=== PATIENT | male | born 1990 | race Caucasian/White ===

== ENCOUNTER 2019-05-16 12:58 | Emergency (ER) | payer BC, SELFPAY ==
[2019-05-16 13:10] VITALS: BP 128/82; PULSE 100; RESP 20; TEMP 37.2; O2SAT 100
--- NOTE | 2019-05-16 13:11 | ED.ABDPAIN ---
HPI - Abdominal Pain General Chief Complaint: Upper Respiratory Infection Stated Complaint: adm pain/nausea/fever Time Seen by Provider: 05/16/19 13:19 Source: patient and RN notes reviewed Mode of arrival: ambulatory Limitations: no limitations History of Present Illness HPI narrative: 28-year-old male presents with concern for diarrhea that started around 5:00 this morning. Reports 5 diarrhea stools since that time. Reports chills, sweats, abdominal cramping, nausea. Denies vomiting. Denies current abdominal pain or nausea. Reports he took Pepto-Bismol this morning. MD elicited complaint: other (Diarrhea) Related Data Allergies Allergy/AdvReac Type Severity Reaction Status Date / Time No Known Allergies Allergy Verified 03/04/19 11:11 Review of Systems Review of Systems: Narrative: CONSTITUTIONAL: Denies malaise, chills, sweats, or fever. ENT: Reports rhinorrhea, congestion. Denies sinus pain, otalgia or sore throat. CARDIOVASCULAR: Denies chest pain, palpitations, or edema. RESPIRATORY: Denies cough or dyspnea. GASTROINTESTINAL: Denies current abdominal pain, current nausea, vomiting. Reports diarrhea. Denies bloody, or mucous stools. GENITOURINARY: Denies dysuria or hematuria. MUSCULOSKELETAL: Reports myalgia. NEUROLOGIC: Denies numbness, weakness, or headache. All systems reviewed & are unremarkable except as noted in HPI and below PMFSH Social History Social History Smoking status: Never smoker Second hand tobacco smoke exposure: No Alcohol intake: current Drinks per week: 2 Substance use: never Substance use type: does not use Gender identity (if verbalized by the patient): Male Comments At time of signature, agree with nursing past medical, surgical, social and family history. There is no relevant family history pertinent to the presenting complaint Exam Narrative: Exam Narrative: GENERAL: Well-appearing, well-nourished, and in no acute distress. HEAD: Normocephalic, atraumatic. EYES: PERRLA, conjunctivae clear, and EOMI. ENT: Nares clear, turbinates pink, no rhinorrhea or epistaxis. Mucous membranes moist. Oropharynx without edema, erythema, or lesions. Tonsils not enlarged and without exudate. NECK: Supple. No lymphadenopathy CHEST: Speaks in full sentences. No respiratory distress. Lungs clear to auscultation, no wheezing, rhonchi, rales. Breath sounds equal HEART: Regular rate and rhythm. ABDOMEN: Soft, mild, nondistended. No guarding, rebound tenderness, or rigid. No pulsatilla masses. Bowel sounds present in all four quadrants. No organomegaly. Negative Overton?s sign. Mild epigastric tenderness. No periumbilical tenderness. No Supra public tenderness or distension. Good femoral pulses bilaterally. No hernia noted. No scars or surface trauma. SKIN: Warm, dry, no rash. NEURO: Alert and oriented x3. PSYCH: Normal mood and affect Course Course Emergency Course: Discussed with patient limited diagnostic capability at the [facility]. Discussed seeking further evaluation emergency department, which patient is not interested in doing at this time. Discussed doing a KUB for further evaluation, patient refused KUB due to cost reasons. Patient reports he understands reasons why he should go to the emergency room if his symptoms worsen or do not improve. Patient is aware of diagnosis, understands and agrees to treatment plan. Anticipatory guidance given. Patient agrees to follow-up as directed and is aware of reasons to seek care at the emergency department. Portions of this record may have been created with voice recognition software Vital Signs Vital signs: Vital Signs Temperature 98.9 F 05/16/19 13:10 Pulse Rate 100 05/16/19 13:10 Respiratory Rate 05/16/19 13:10 Blood Pressure 128/82 05/16/19 13:10 Pulse Oximetry 100 05/16/19 13:10 Temperature 98.9 F 05/16/19 13:10 Pulse Rate 100 05/16/19 13:10 Re
== END 2019-05-16 13:47 | disposition home or self-care (01) ==
PROVIDERS: Emergency Provider Nurse Practitioner; PCP Family Medicine
DX: R10.13 Epigastric pain (principal); R19.7 Diarrhea, unspecified
CPT/HCPCS: 87804; 99213; G0463

== ENCOUNTER 2020-02-03 06:51 | Outpatient (NON) | payer BC, SELFPAY ==
[2020-02-05 16:41] LABS: SARS-CoV-2 RNA PCR Negative
== END 2020-02-03 06:52 ==
LOC: ANHCOVIDDT 06:51
PROVIDERS: PCP Family Medicine; Visit Provider Physician Assistant
DX: R68.89 Other general symptoms and signs (principal); Z20.828 Contact with and (suspected) exposure to other viral communicable diseases
CPT/HCPCS: 87635; C9803; U0003

== ENCOUNTER 2020-08-30 15:09 | Outpatient (CLI) | payer BC, SELFPAY ==
--- NOTE | ~2020-08-30 | XR_ITS ---
XR chest 2V DATE: 08/30/2020 15:26 INDICATION: Cough. Sinus infection for one week. TECHNIQUE: PA and lateral views COMPARISON: None FINDINGS: Normal heart size. No hilar or mediastinal enlargement. No pulmonary infiltrate or consolid ation, pleural effusion or pulmonary vascular congestion or pneumothorax. There is old pulmonary gran ulomatous disease. Gaseous distention of the stomach. IMPRESSION: No active cardiopulmonary disease Reviewed, dictated and finalized at location A.
== END 2020-08-30 15:10 | disposition home or self-care (01) ==
PROVIDERS: PCP Family Medicine; Visit Provider Family Medicine
DX: R05 Cough (principal)
CPT/HCPCS: 71046

== ENCOUNTER → 2022-02-12 16:39 | Outpatient (CLI) | payer BC, SELFPAY ==
--- NOTE | ~2022-02-12 | XR_ITS ---
XR lumbar spine 2-3V 02/12/2022 17:04 Indication: Low back pain Procedure: 3 views lumbar spine Comparison: No prior studies for comparison. Findings: Vertebral body heights are maintained. No significant disc narrowing. There is facet hypert rophy at L5-S1. No evidence for spondylolysis or spondylolisthesis. Mild levocurvature of the lumbar spine. Sacral foramen are symmetric. Impression: 1: Mild spondylosis at L5-S1. Reviewed, dictated and finalized at location A. TAKER Impression: 1: Mild spondylosis at L5-S1.
== END ==
PROVIDERS: PCP Family Medicine; Visit Provider Chiropractor Rehabilitation
DX: M47.897 Other spondylosis, lumbosacral region (principal)
CPT/HCPCS: 72100

== ENCOUNTER 2024-12-09 18:47 | Emergency (ER) | payer OTHER, BC, SELFPAY ==
[2024-12-09 19:00] VITALS: BP 149/87; PULSE 91; RESP 18; TEMP 37.2; O2SAT 100
--- NOTE | 2024-12-09 19:40 | ED_ITS ---
HPI - Wound/Laceration General Chief Complaint: Wound/Laceration Stated Complaint: Left Hand Laceration Time Seen by Provider: 12/09/24 19:20 Source: patient, RN notes reviewed and old records reviewed Mode of arrival: ambulatory Limitations: no limitations History of Present Illness HPI narrative: 34 year old male presents to [facility] with complaints of sustaining a small laceration in the web space near his thumb 2 days ago by a plastic sheet that was on the [facility] Patient reports that he has been keeping it clean using soap and water putting Neosporin on area and dress but it started bleeding and w as concerned that maybe it needed something done. No active bleeding at this time noted with wound small superficial flap type of wound. reports that tetanus is UTD. Onset (ago): day(s) (2 days ago) Location: other (left hand) Place: work Patient tetanus UTD: Yes Treatments prior to arrival: bandage and other (cleaning with soap and water) Related Data Home Medications ?Medication ?Instructions ?Recorded ?Confirmed ?Last Taken ?Type No Home Medications 12/09/24 12/09/24 U nknown History Allergies Allergy/AdvReac Type Severity Reaction Status Date / Time No Known Allergies Allergy Verified 12/09/24 19:36 Review of Systems Review of Systems: CONSTITUTIONAL: Denies fever, chills, or sweats. CARDIOVASCULAR: Denies chest pain, palpitations, or edema. RESPIRATORY: Denies cough or dyspnea. SKIN: Reports small flap type of laceration to the web space of his left hand which occurred 2 days ago when he cut it on piece of plastic. MUSCULOSKELETAL: Denies musculoskeletal pain NEUROLOGIC: Denies numbness, or weakness. All systems reviewed & are unremarkable except as noted in HPI and below PMFSH Past Medical History Medical History Sinusitis Family History Family History Mother Patient's mother is in good health Father Patient's father is in good health Hypertension Family history of elevated blood lipids Sibling Patient's sister is in good health Patient's brother is in good health Other Cerebrovascular accident Diabetes mellitus Social History Social History Social History: Single Smoking status: Never smoker Second hand tobacco smoke exposure: No Alcohol intake: current Drinks per week: 2 Substance use: never Substance use type: does not use Living arrangements: with family Occupation/Education: occupation 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 There is no relevant family history pertinent to the presenting complaint Exam Narrative: GENERAL: Well-appearing, well-nourished, and in no acute distress. HEAD: Normocephalic, atraumatic. NECK: Supple.no lymphadenopathy CHEST: Clear to auscultation. No respiratory distress.SAO2 100% on room air HEART: Regular rate and rhythm. No murmur heard. Normal peripheral pulses. EXTREMITIES: Normal range of motion. No edema. SKIN: Warm, dry, no rash. Reports small flap type of laceration to web space left hand near thumb no active bleeding occurred 2 days ago. NEURO: No focal deficits. Alert and oriented x3. Course Course Level of Care: Express Care Visit Vital Signs Vital signs: Vital Signs Temperature 37.2 C 12/09/24 19:00 Pulse Rate 91 12/09/24 19:00 Respiratory Rate 18 12/09/24 19:00 Blood Pressure 149/87 H 12/09/24 19:00 Pulse Oximetry 100 12/09/24 19:00 Oxygen Delivery Room Air 12/09/24 19:00 Temperature 37.2 C 12/09/24 19:00 Pulse Rate 91 12/09/24 19:00 Respiratory Rate 18 12/09/24 19:00 Blood Pressure 149/87 H 12/09/24 19:00 Pulse Oximetry 100 12/09/24 19:00 Oxygen Delivery Room Air 12/09/24 19:00 reviewed Procedures Other Procedure Procedure 1: Other Procedure: 0.5cm flap type of laceration noted to web space left hand near thumb with no active bleeding noted, cleansed with saline and wound care solution, wound 48 hours old. Steri-strip applied over wound edges after application of benzoine to wound edges and covered with band-aide. Wound care reviewed with patient. MDM - Wound/Laceration MDM Narrative Medical decision making narrative: Wound explored for foreign body and copious irrigation provided with no evidence of FB. Discussed the potential of retained foreign body with the patient and signs/symptoms that should prompt the patient to immediately go to the ED for re evaluation. The wound was explored and no foreign bodies were found. There was no evidence of tendon or nerve lacerations. The wound was closed per procedure note. A sterile dressing was then applied and anticipatory guidance was provided. Tetanus prophylaxis was not given. Differential Diagnosis Differential diagnosis: Likely laceration, abrasion, avulsion of skin and other (flap laceration superficial) Medical Records Attestation: I reviewed the patient's medical records. Critical Care Time Critical Care Time Critical Care Time: No Discharge Plan Discharge Clinical Impression: Laceration Patient Disposition: Home Condition: Stable Instructions: Antibiotic Form, Laceration (ED) Additional Instructions: Keep the area clean and dry No continuous water contact like dishes or swimming You may bathe and wash you hair caution with hair products or lotions dressing of choice watch for any infection--redness, swelling, drainage Blood Steri-Strips follow off on their own do not pull them off recheck with PCP if further concerns or problems If your symptoms persist, change or worsen significantly before you can contact your personal physician then please, without delay, go to the emergency department for further evaluation. Follow-up with PCP in 7-10 days or sooner if needed Follow up with PCP soon in regards to your blood pressure which is elevated above threshold for referral. Blood pressure above 120/80 may indicate pre- hypertension. 149/87 Patient Language: Slovenian Prescriptions: No Action No Home Medications Follow-up/Referrals: Rach Trejo MD [Primary Care Provider, [facility]] Time of Disposition: 19:53 Quality Laura Coma Scale Eyes: Open Verbal: Oriented and Alert Motor: Follows Commands Laura Coma Total Score: 15
== END 2024-12-09 20:00 | disposition home or self-care (01) ==
PROVIDERS: Emergency Provider Registered Nurse; PCP Family Medicine
DX: S61.412A Laceration without foreign body of left hand, initial encounter (principal); W45.8XXA Other foreign body or object entering through skin, initial encounter
CPT/HCPCS: 99212; G0463

== ENCOUNTER 2024-12-18 19:03 | Emergency (ER) | payer BC, SELFPAY ==
[2024-12-18 19:13] VITALS: BP 126/80; PULSE 83; RESP 18; TEMP 36.8; O2SAT 99
--- NOTE | 2024-12-18 19:35 | ED.SKABFB ---
HPI - Skin/Abscess/Foreign Bdy General Chief complaint: Skin/Abscess/Foreign Body Stated complaint: rash on arm Time Seen by Provider: 12/18/24 19:35 Source: patient, RN notes reviewed and old records reviewed Mode of arrival: ambulatory Limitations: no limitations History of Present Illness HPI narrative: 34-year-old male presents to the [facility] with a red raised plaque area, not warm to touch. States has been there about a week. No treatment prior to arrival. Patient reports it as being itchy. Inside antecubital area, 3 cm Related Data Allergies Allergy/AdvReac Type Severity Reaction Status Date / Time No Known Allergies Allergy Verified 12/18/24 19:12 Review of Systems Review of Systems: All systems reviewed & are unremarkable except as noted in HPI and below Constitutional: Constitutional: Reports no additional constitutional complaints Cardiovascular: Cardiovascular: Reports no additional cardiovascular complaints, Denies chest pain and Denies dyspnea Respiratory: Respiratory: Reports no additional respiratory complaints, Denies chest congestion, Denies cough and Denies dyspnea Musculoskeletal: Musculoskeletal: Reports no additional musculoskeletal complaints Integumentary/Breasts: Skin/Breast: Reports as per HPI [facility] Past Medical History Medical History Sinusitis Family History Family History Mother Patient's mother is in good health Father Patient's father is in good health Hypertension Family history of elevated blood lipids Sibling Patient's sister is in good health Patient's brother is in good health Other Cerebrovascular accident Diabetes mellitus Social History Social History Social History: Single Smoking status: Never smoker Second hand tobacco smoke exposure: No Alcohol intake: current Drinks per week: 2 Substance use: never Substance use type: does not use Living arrangements: with family Occupation/Education: occupation 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 There is no relevant family history pertinent to the patient complaint. Exam Const: General: cooperative, healthy appearing, comfortable, no acute distress, well developed, alert and well nourished Nutritional Appearance: well nourished Orientation/consciousness: patient oriented x3 Limitations: no limitations HENMT: Head: normal to inspection Eyes: General: appearance normal, both eyes and all related structures Alignment and Position: alignment normal Neck: Neck: normal visual inspection, full ROM, no lymphadenopathy and no meningeal signs Chest: Chest palpation & inspection: normal inspection of the chest Resp: Effort & Inspection: normal respiratory effort and able to speak in complete sentences Cardio: Rate: regular rate Skin: General skin exam: normal color and no rashes or lesions noted Full body images:  1. 3 cm pain, plaque patch of skin, dry, flaky Neuro: General: patient oriented x3, gait normal, moves all extremities and no meningeal signs Cognition (Neuro): normal cognition Speech: normal speech Gait exam (Neuro): Normal gait present Extrem: General: normal to inspection, full ROM, capillary refill normal and normal gait Psych: Appearance: grossly normal and well kempt Mental Status: mental status grossly normal Speech and movement: Normal speech and movement present and Clear speech present Affect: normal affect Attitude: cooperative Course Course Level of Care: Express Care Visit Vital Signs Vital signs: Vital Signs Temperature 98.3 F 12/18/24 19:13 Pulse Rate 83 12/18/24 19:13 Respiratory Rate 18 12/18/24 19:13 Blood Pressure 126/80 12/18/24 19:13 Pulse Oximetry 99 12/18/24 19:13 Oxygen Delivery Room Air 12/18/24 19:13 Temperature 98.3 F 12/18/24 19:13 Pulse Rate 83 12/18/24 19:13 Respiratory Rate 18 12/18/24 19:13 Blood Pressure 126/80 12/18/24 19:13 Pulse Oximetry 99 12/18/24 19:13 Oxygen Delivery Room Air 12/18/24 19:13 Reviewed MDM - Skin/Abscess/Foreign Bdy MDM Narrative Medical decision making narrative: Patient presents 1 week history of itchy circular area, consistent with eczema dermatitis. Patient is appropriate for outpatient treatment with steroid cream and stressed the importance of following up with primary care provider Discharge instructions reviewed with patient, as well as provided in writing per nursing staff. The instructions also include specific and strict return/GO TO THE ER as well as f/u information. All questions have been answered, and the patient deny any further questions with discharge and discharge plan. Some parts of this dictation were generated by voice recognition software and may contain typographical and/or grammatical inaccuracies. Differential Diagnosis Differential diagnosis: Likely abscess of skin or subcutaneous tissue, dermatophytosis, urticaria, cellulitis and contact dermatitis Critical Care Time Critical Care Time Critical Care Time: No Discharge Plan Discharge Clinical Impression: Eczematous dermatitis Qualifiers: Eczema type: unspecified Qualified Code(s): L30.9 - Dermatitis, unspecified Patient Disposition: Home Condition: Stable Instructions: Eczema (ED) Additional Instructions: Apply steroid cream twice daily. Apply a good moisturizing cream such as Aveeno Avoid hot showers Follow-up with primary care provider if no improvement For worsening symptoms go directly to the emergency room Patient Language: Australian Prescriptions: New triamcinolone acetonide 0.1 % cream 1 applic topical BID Qty: 30 0RF Follow-up/Referrals: Cabrera Finn MD [Primary Care Provider, Family Practice] - 1 Week Stand Alone Forms: Work/School Release IP Time of Disposition: 19:49
== END 2024-12-18 19:52 | disposition home or self-care (01) ==
PROVIDERS: Emergency Provider Nurse Practitioner; PCP Family Medicine
DX: L30.9 Dermatitis, unspecified (principal)
CPT/HCPCS: 99213; G0463